=== PATIENT | male | born 1985 | race Two or more races ===

== ENCOUNTER 2021-04-22 10:17 | Emergency (ER) | payer OTHER ==
[~2021-04-22] VITALS: Ht 180.3 cm; Wt 131.5 kg
--- NOTE | 2021-04-22 10:31 | NUR ---
PT IS IN ROOM #2B. DR ESTRADA EVALUATED THE PT.
--- NOTE | 2021-04-22 11:35 | NUR ---
PT WAS D/C'd TO HOME. D/C INSTRUCTIONS GIVEN TO THE PT BY DR ESTRADA.
[2021-04-22 11:36] VITALS: BP 139/75
[2021-04-22] MEDS ORDERED: ACETAMINOPHEN ES 500 MG TABLET ONE (11:44)
[2021-04-22] MEDS ORDERED: ACETAMINOPHEN 650 MG/20.3 ML LIQUID UDC PO ONE (11:45)
== END 2021-04-22 11:39 | disposition home or self-care (01) ==
LOC: ER 10:19
DX: S01.21XA Laceration without foreign body of nose, initial encounter (principal); W26.8XXA Contact with other sharp object(s), not elsewhere classified, initial encounter; Y93.89 Activity, other specified; Y92.69 Other specified industrial and construction area as the place of occurrence of the external cause; Y99.0 Civilian activity done for income or pay
CPT/HCPCS: 70150; A4663; A9150